=== PATIENT | female | born 1960 | race Caucasian/White ===

== ENCOUNTER 2021-10-18 15:53 | Emergency (ER) | payer OTHER, SELFPAY ==
[2021-10-18 16:35] VITALS: BP 133/84; PULSE 70; RESP 16; TEMP 36.9; O2SAT 99; BMI 33.9
[2021-10-18 17:15] LABS: INR 1.1 (0.9-1.3); Prothrombin Time 12.6 SECONDS (10.1-12.7)
[2021-10-18 17:17] LABS: PTT Partial Thromboplastin Tim 38 SECONDS (26.4-36.2)
[2021-10-18 17:20] LABS: Add Manual Diff / Slide Review NO; Basophils Absolute Auto 100 /uL (0-100); Basophils Percent Auto 1.7 % (0-2); Eosinophils Absolute Auto 200 /uL (0-450); Eosinophils Percent Auto 2.4 % (2-4); Hematocrit 33.4 % (36-46); Lymphocytes Absolute Auto 2900 /uL (1100-4500); Lymphocytes Percent Auto 34.6 % (25-40); Mean Corpuscular HGB Conc 33.1 % (30-36); Mean Corpuscular Hemoglobin 26.9 PG (26-34); Mean Corpuscular Volume 81.4 fL (80-100); Monocytes Absolute Auto 800 /uL (0-900); Monocytes Percent Auto 9.8 % (3-14); Neutrophils Absolute Auto 4400 /uL (1500-7000); Neutrophils Percent Auto 51.5 % (50-75); Platelet Count 463 X10^3/uL (150-400); Red Cell Distribution Width 19.5 % (11.6-14.8); White Blood Cell Count 8.5 X10^3/uL (4.5-11.0)
[2021-10-18 17:22] LABS: Appearance Urine UA CLEAR; Bilirubin Urine UA NEGATIVE (NEGATIVE); Color Urine UA YELLOW; Glucose Urine UA NEGATIVE (Negative); Ketones Urine UA NEGATIVE (NEGATIVE); Leukocyte Esterase Urine UA NEGATIVE (NEGATIVE); Nitrite Urine UA NEGATIVE (Negative); Occult Blood Urine UA 2+ (Negative); Protein Urine UA NEGATIVE (Negative); Urobilinogen Urine UA 0.2 E.U./dL (0.2)
[2021-10-18 17:23] LABS: Alanine Aminotransferase 21 IU/L (<35); Albumin 4.4 g/dL (3.5-5.0); Albumin Globulin Ratio 1.3 (1.0-2.8); Alkaline Phosphatase 91 U/L (38-126); Aspartate Aminotransferase 30 IU/L (14-36); BUN Creatinine Ratio 30.8 (6-22); Bilirubin Total 0.2 mg/dL (0.2-1.3); Blood Urea Nitrogen 24 mg/dL (7-17); Calcium 9.1 mg/dL (8.4-10.2); Carbon Dioxide 27 mmol/L (22-32); Chloride 106 mmol/L (98-107); Estimated Glomerular Filt Rate > 60 mL/min (>60); Globulin 3.5 g/dL (1.7-4.1); Glucose 87 mg/dL (70-100); HEMOLYSIS 17 (0-50); Potassium 4.2 mmol/L (3.4-5.1); Sodium 138 mmol/L (137-145); Total Protein 7.9 g/dL (6.3-8.2)
[2021-10-18 17:25] LABS: pH Urine UA 5.5 (4.5-8.0)
[2021-10-18 17:27] LABS: Bacteria Urine None Seen; Culture Indicated Urine Cult Not Indicated; RBC Urine None Seen (0-5/HPF); WBC Urine None Seen (0-5/HPF)
--- NOTE | 2021-10-18 17:33 | DI.US.S_ITS ---
PROCEDURE: US ABDOMEN LIMITED INDICATIONS: RUQ PAIN TECHNIQUE: Real-time focused scanning was performed of the abdomen, with image documentation. COMPARISON: [facility], CT, CT ABDOMEN PELVIS W CON, 10/18/2021, 17:39. FINDINGS: The liver is normal in size and demonstrates no focal lesions. No findings of gallstones or sludge are seen. The gallbladder wall is not thickened, measuring 3 mm or less. No specific pericholecystic fluid is seen. The sonographic Chavarria sign is negative. There is no biliary dilatation, the common bile duct measures 6 mm. No significant pancreatic abnormality is seen on these images. IMPRESSION: The gallbladder demonstrates a normal sonographic appearance. No biliary dilatation is seen. Dictated by: Hilario Lagos M.D. on 10/18/2021 at 17:30 Approved by: Hilario Lagos M.D. on 10/18/2021 at 17:30
--- NOTE | 2021-10-18 17:33 | DI.CT.S_ITS ---
PROCEDURE: CT ABDOMEN PELVIS W CON INDICATIONS: Abd pain, nausea TECHNIQUE: After the administration of oral and IV contrast, axial sections were acquired from the lung bases to the pubic symphysis. Coronal and sagittal reformats were performed. For radiation dose reduction, the following was used: automated exposure control, adjustment of mA and/or kV according to patient size. COMPARISON: [facility], , ABDOMEN LIMITED, 10/18/2021, 17:51. FINDINGS: Image quality: Excellent. Lung bases: Unremarkable. Heart: No significant findings. ABDOMEN: Liver: Unremarkable. Gallbladder: Unremarkable. Biliary ducts: Unremarkable. Pancreas: Unremarkable. Spleen: Unremarkable. Adrenal Glands: Unremarkable. Kidneys and Ureters: No hydronephrosis. Left renal scarring. Stomach and Bowel: Christa-en-Y gastric bypass. No small bowel obstruction. Clumped appearance of the small bowel in the left abdomen. Prominent stool in the right colon. Normal appendix. Peritoneum: No abnormal intraperitoneal fluid. No free air. Ventral Wall: No hernia. Abdominal Nodes: No retroperitoneal or mesenteric adenopathy by size criteria. Vessels: Aorta and inferior vena cava are normal in size. PELVIS: Pelvic Organs: Anteverted uterus. Bladder: No stone. Pelvic Nodes: No enlarged lymph nodes. Miscellaneous: No inguinal hernias are seen. Bones: No suspicious lesion. IMPRESSION: 1. Clumped appearance of the small bowel in the left abdomen. This raises the possibility of an enteritis. No free fluid. 2. Christa-en-Y gastric bypass. No small bowel obstruction. 3. Prominent stool in the right colon. Dictated by: Gamal Veliz M.D. on 10/18/2021 at 18:30 Approved by: Gamal Veliz M.D. on 10/18/2021 at 18:36
--- NOTE | 2021-10-18 18:38 | ED_ITS ---
HPI - GI Bleed <Agustin Boland PA-C - Last Filed: 10/18/21 19:26> General Chief complaint: GI Bleed Stated complaint: ABD pain, dark stool Time Seen by Provider: 10/18/21 16:30 History of Present Illness HPI Narrative: 61-year-old female with past medical history anemia presents to the ED with 1 day of epigastric pain, black tarry stools, nausea. Patient states that she was diagnosed with anemia and hemoglobin of 10 in mid August, started on iron supplements. Patient was seen by her PCP last week, when he recommended that she stop taking Voltaren and ibuprofen for her back and neck pain, due to concern for a possible GI bleed. PCP also recommended patient see a GI specialist. Patient endorses shortness of breath over the last few months and fatigue and weakness. Patient states these symptoms remained unchanged. However, this morning patient got extremely nauseous, felt a tearing pain in her abdomen when she tried to take a sip of her protein shake. Patient also endorses 1 black, tarry, sticky bowel movement, followed by another bowel movement that looked more normal. Patient had a colonoscopy 3 years ago which was normal. Patient has not had a endoscopy. Patient denies fever, chills, chest pain, shortness of breath at rest, vomiting, dysuria, flank pain, lightheadedness, dizziness, syncope. Related Data Allergies Allergy/AdvReac Type Severity Reaction Status Date / Time No Known Drug Allergies Allergy Verified 10/18/21 18:40 Review of Systems <Agustin Boland PA-C - Last Filed: 10/18/21 19:26> Review of Systems ROS Unobtainable: All systems reviewed & are unremarkable except as noted in HPI and below Constitutional Constitutional: Denies chills, Denies fatigue, Denies fever(s), Denies frequent falls, Denies lethargy and Reports weakness Eyes Eyes: Denies change in vision, Denies eye discharge, Denies irritation and Denies loss of vision ENT Ears, Nose, Mouth, and Throat: Denies change in voice, Denies dizziness, Denies neck pain, Denies sore throat and Denies throat swelling Cardiovascular Cardiovascular: Denies chest pain, Denies irregular heart rhythm, Denies lightheadedness, Denies palpitations, Reports dyspnea, Denies dyspnea on exertion and Denies orthopnea Respiratory Respiratory: Denies cough, Reports dyspnea, Denies dyspnea on exertion and Denies wheezing Gastrointestinal Gastrointestinal: Reports abdominal pain, Reports melena, Denies change in bowel habits, Denies diarrhea, Reports nausea and Denies vomiting Genitourinary Genitourinary: Denies hematuria, Denies flank pain, Denies urinary incontinence and Denies urinary urgency Musculoskeletal Musculoskeletal: Denies back pain, Denies muscle weakness, Denies neck pain, Denies numbness and Denies tingling Integumentary/Breasts Skin/Breast: Denies pruritus, Denies erythema, Denies rash and Denies wounds Neurologic Neurologic: Denies behavioral changes, Denies confusion, Denies dizziness, D enies frequent falls, Denies loss of vision, Denies numbness, Denies tingling and Reports weakness Psychiatric Psychiatric: Denies anxiety, Denies behavioral changes, Denies confusion, Denies depression, Denies homicidal ideation and Denies suicidal ideation Endocrine Endocrine: Denies fatigue, Denies flushing and Denies palpitations Hematologic/Lymphatic Hematologic/Lymphatic: Denies easy bruising Allergic/Immunologic Allergic/Immunologic: Denies urticaria, Denies throat swelling and Denies wheezing Exam <Agustin Boland PA-C - Last Filed: 10/18/21 19:26> Initial Vital Signs Initial Vital Signs: Vital Signs Temperature 98.4 F 10/18/21 16:35 Pulse Rate 70 10/18/21 16:35 Respiratory Rate 16 10/18/21 16:35 Blood Pressure 133/84 10/18/21 16:35 Pulse Oximetry 99 10/18/21 16:35 Const General: cooperative, healthy appearing and comfortable [facility] Head: normal to inspection Eyes General: Yes appearance normal, both eyes and all related structures Resp Effort & Inspection: normal respiratory effort Auscultation: clear to auscultation bilaterally Cardio Rate: regular rate Rhythm: regular rhythm GI Inspection: normal to inspection Rectal Exam: visual inspection normal, normal sphincter tone and heme positive stool Other: Abdomen is soft, nondistended. Abdomen is tender to palpation in the right upper quadrant General: No CVA tenderness Skin General: no rashes or lesions noted Neuro General: patient alert, patient awake and patient oriented x3 Psych Appearance: grossly normal Mental Status: mental status grossly normal <Salvatore Shook DO - Last Filed: 10/22/21 00:19> Initial Vital Signs Initial Vital Signs: Vital Signs Temperature 98.4 F 10/18/21 16:35 Pulse Rate 70 10/18/21 16:35 Respiratory Rate 16 10/18/21 16:35 Blood Pressure 133/84 10/18/21 16:35 Pulse Oximetry 99 10/18/21 16:35 Course <Agustin Boland PA-C - Last Filed: 10/18/21 19:26> Orders Ordered: Discontinued Medications Al Hydrox/Mg Hydrox/Simethicone 20 ml/ Lidocaine HCl 15 ml 0 ml PO NOW ONE Stop: 10/18/21 17:33 Last Admin: 10/18/21 18:42 Dose: 15 ml Documented by: RICHARD Famotidine (Famotidine 20 Mg/2 Ml Vial) 40 mg IV NOW [facility] Last Admin: 10/18/21 18:41 Dose: 40 mg Documented by: RICHARD Morphine Sulfate (Morphine 2 Mg/Ml Inj) 4 mg IV NOW ONE Stop: 10/18/21 17:33 Last Admin: 10/18/21 18:41 Dose: 4 mg Documented by: RICHARD Vital Signs Vital signs: Vital Signs - 8 hr 10/18/21 16:35 10/18/21 18:55 10/18/21 18:56 Temperature 98.4 F Pulse Rate 70 65 65 Respiratory Rate 16 Blood Pressure 133/84 133/65 Pulse Oximetry 99 99 99 10/18/21 19:00 Temperature Pulse Rate 66 Respiratory Rate Blood Pressure 123/64 Pulse Oximetry 99 <Salvatore Shook DO - Last Filed: 10/22/21 00:19> Orders Ordered: Discontinued Medications Al Hydrox/Mg Hydrox/Simethicone 20 ml/ Lidocaine HCl 15 ml 0 ml PO NOW ONE Stop: 10/18/21 17:33 Last Admin: 10/18/21 18:42 Dose: 15 ml Documented by: RICHARD Famotidine (Famotidine 20 Mg/2 Ml Vial) 40 mg IV NOW [facility] Last Admin: 10/18/21 18:41 Dose: 40 mg Documented by: RICHARD Morphine Sulfate (Morphine 2 Mg/Ml Inj) 4 mg IV NOW ONE Stop: 10/18/21 17:33 Last Admin: 10/18/21 18:41 Dose: 4 mg Documented by: RICHARD Vital Signs Vital signs: Vital Signs - 8 hr 10/18/21 16:35 10/18/21 18:55 10/18/21 18:56 Temperature 98.4 F Pulse Rate 70 65 65 Respiratory Rate 16 Blood Pressure 133/84 133/65 Pulse Oximetry 99 99 99 10/18/21 19:00 Temperature Pulse Rate 66 Respiratory Rate Blood Pressure 123/64 Pulse Oximetry 99 MDM - GI Bleed <Agustin Boland PA-C - Last Filed: 10/18/21 19:26> Medical Records Attestation: I reviewed the patient's medical records. Lab Data Attestation: I reviewed the patient's lab results. Lab results narrative: Labs within normal limits Result diagrams: 10/18/21 16:50 10/18/21 16:50 Labs: Lab Results 10/18/21 10/18/21 10/18/21 Range/Units 16:50 16:50 16:50 WBC 8.5 (4.5-11.0) X10^3/uL RBC 4.10 (4.0-5.2) X10^6/uL Hgb 11.0 L (12.0-16.0) g/dL Hct 33.4 L (36-46) % MCV 81.4 (80-100) fL MCH 26.9 (26-34) PG MCHC 33.1 (30-36) % RDW 19.5 H (11.6-14.8) % Plt Count 463 H (150-400) X10^3/uL Neut % (Auto) 51.5 (50-75) % Lymph % (Auto) 34.6 (25-40) % [place] % (Auto) 9.8 (3-14) % Eos % (Auto) 2.4 (2-4) % Baso % (Auto) 1.7 (0-2) % Neut # (Auto) 4400 (7940-5777) /uL Lymph # (Auto) 2900 (7946-6941) /uL [place] # (Auto) 800 (0-900) /uL Eos # (Auto) 200 (0-450) /uL Baso # (Auto) 100 (0-100) /uL PT 12.6 (10.1-12.7) SECONDS INR 1.1 (0.9-1.3) APTT 38 H (26.4-36.2) SECONDS Sodium 138 (137-145) mmol/L Potassium 4.2 (3.4-5.1) mmol/L Chloride 106 (98-107) mmol/L Carbon Dioxide 27 (22-32) mmol/L BUN 24 H (7-17) mg/dL Creatinine 0.78 (0.52-1.04) mg/dL Estimated GFR > 60 (>60) mL/min BUN/Creatinine Ratio 30.8 H (6-22) Glucose 87 (70-100) mg/dL Calcium 9.1 (8.4-10.2) mg/dL Total Bilirubin 0.2 (0.2-1.3) mg/dL AST 30 (14-36) IU/L ALT 21 (<35) IU/L Alkaline Phosphatase 91 (38-126) U/L Total Protein 7.9 (6.3-8.2) g/dL Albumin 4.4 (3.5-5.0) g/dL Globulin 3.5 (1.7-4.1) g/dL Albumin/Globulin Ratio 1.3 (1.0-2.8) Urine Color Urine Appearance Urine pH (4.5-8.0) Ur Specific [place] (1.000-1.035) Urine Protein (Negative) Urine Glucose (UA) (Negative) g/dL Urine Ketones (NEGATIVE) Urine Occult Blood (Negative) Urine Nitrate (Negative) Urine Bilirubin (NEGATIVE) Urine Urobilinogen (0.2) E.U./dL Ur Leukocyte Esterase (NEGATIVE) Urine RBC (0-5/HPF) Urine WBC (0-5/HPF) Urine Bacteria (None) Ur Culture Indicated? Blood Type Antibody Screen 10/18/21 10/18/21 Range/Units 16:50 16:50 WBC (4.5-11.0) X10^3/uL RBC (4.0-5.2) X10^6/uL Hgb (12.0-16.0) g/dL Hct (36-46) % MCV (80-100) fL MCH (26-34) PG MCHC (30-36) % RDW (11.6-14.8) % Plt Count (150-400) X10^3/uL Neut % (Auto) (50-75) % Lymph % (Auto) (25-40) % [place] % (Auto) (3-14) % Eos % (Auto) (2-4) % Baso % (Auto) (0-2) % Neut # (Auto) (2324-6836) /uL Lymph # (Auto) (5802-4125) /uL [place] # (Auto) (0-900) /uL Eos # (Auto) (0-450) /uL Baso # (Auto) (0-100) /uL PT (10.1-12.7) SECONDS INR (0.9-1.3) APTT (26.4-36.2) SECONDS Sodium (137-145) mmol/L Potassium (3.4-5.1) mmol/L Chloride (98-107) mmol/L Carbon Dioxide (22-32) mmol/L BUN (7-17) mg/dL Creatinine (0.52-1.04) mg/dL Estimated GFR (>60) mL/min BUN/Creatinine Ratio (6-22) Glucose (70-100) mg/dL Calcium (8.4-10.2) mg/dL Total Bilirubin (0.2-1.3) mg/dL AST (14-36) IU/L ALT (<35) IU/L Alkaline Phosphatase (38-126) U/L Total Protein (6.3-8.2) g/dL Albumin (3.5-5.0) g/dL Globulin (1.7-4.1) g/dL Albumin/Globulin Ratio (1.0-2.8) Urine Color Yellow Urine Appearance Clear Urine pH 5.5 (4.5-8.0) Ur Specific [place] 1.010 (1.000-1.035) Urine Protein Negative (Negative) Urine Glucose (UA) Negative (Negative) g/dL Urine Ketones Negative (NEGATIVE) Urine Occult Blood 2+ H (Negative) Urine Nitrate Negative (Negative) Urine Bilirubin Negative (NEGATIVE) Urine Urobilinogen 0.2 (0.2) E.U./dL Ur Leukocyte Esterase Negative (NEGATIVE) Urine RBC None seen (0-5/HPF) Urine WBC None seen (0-5/HPF) Urine Bacteria None seen (None) Ur Culture Indicated? Cult not indicated Blood Type O Positive Antibody Screen Negative Point of Care Testing Stool Occult Blood Positive Imaging Data CT scan - abdomen/pelvis: Radiologist's Impression: PROCEDURE:? CT ABDOMEN PELVIS W CON ? INDICATIONS:? Abd pain, nausea ? TECHNIQUE:? After the administration of oral and IV contrast, axial sections were acquired from the lung bases to the pubic symphysis.? Coronal and sagittal reformats were performed.? For radiation dose reduction, the following was used:? automated exposure control, adjustment of mA and/or kV according to patient size. ? COMPARISON:? [facility], ABDOMEN LIMITED, 10/18/2021, 17:51. ? FINDINGS:? Image quality:? Excellent.? ? Lung bases:? Unremarkable.? ? Heart:? No significant findings. ? ? ABDOMEN: Liver:? Unremarkable.? ? Gallbladder:? Unremarkable.? ? Biliary ducts:? Unremarkable.? ? Pancreas:? Unremarkable.? ? Spleen:? Unremarkable.? ? Adrenal Glands:? Unremarkable.? ? Kidneys and Ureters:? No hydronephrosis.? Left renal scarring.? ? ? Stomach and Bowel:? Christa-en-Y gastric bypass.? No small bowel obstruction.? Clumped appearance of the small bowel in the left abdomen.? Prominent stool in the right colon.? Normal appendix.? Peritoneum:? No abnormal intraperitoneal fluid.? No free air.? ? Ventral Wall: ? No hernia.? Abdominal Nodes:? No retroperitoneal or mesenteric adenopathy by size criteria.? Vessels:? Aorta and inferior vena cava are normal in size.? ? PELVIS: Pelvic Organs:? Anteverted uterus.? ? Bladder:? No stone.? ? Pelvic Nodes: No enlarged lymph nodes.? Miscellaneous: No inguinal hernias are seen. ? ? ? Bones:? No suspicious lesion. ? ? IMPRESSION:? 1. Clumped appearance of the small bowel in the left abdomen.? This raises the possibility of an enteritis.? No free fluid. ? 2. Christa-en-Y gastric bypass.? No small bowel obstruction. ? 3. Prominent stool in the right colon. ? ? Dictated by: Gamal Veliz M.D. on 10/18/2021 at 18:30 ? ? Approved by: Gamal Veliz M.D. on 10/18/2021 at 18:36 ? US - abdomen: Radiologist's Impression: PROCEDURE: US ABDOMEN LIMITED ? INDICATIONS:? RUQ PAIN ? TECHNIQUE:? Real-time focused scanning was performed of the abdomen, with image documentat ion.? ? COMPARISON:? [facility], CT, CT ABDOMEN PELVIS W CON, 10/18/2021, 17:39. ? FINDINGS:? The liver is normal in size and demonstrates no focal lesions. ? No findings of gallstones or sludge are seen.? The gallbladder wall is not thickened, measuring 3 mm or less.? No specific pericholecystic fluid is seen.? The sonographic Chavarria sign is negative. ? There is no biliary dilatation, the common bile duct measures 6 mm.? ? No significant pancreatic abnormality is seen on these images.? IMPRESSION:? The gallbladder demonstrates a normal sonographic appearance. No biliary dilatation is seen. ? ? Dictated by: Hilario Lagos M.D. on 10/18/2021 at 17:30 ? ? Approved by: Hilario Lagos M.D. on 10/18/2021 at 17:30 ? MDM Narrative Medical decision making narrative: 61-year-old female with past medical history anemia presents to the ED with 1 day of epigastric pain, black tarry stools, nausea. Concern for upper GI bleed versus anemia versus cholecystitis versus bowel obstruction versus GERD versus gastritis versus peptic ulcer disease. Will order labs, type and screen, coags, ultrasound abdomen, CT abdomen pelvis. Will treat symptoms with GI cocktail, Pepcid AC, morphine. Will re-evaluate. Ultrasound shows a normal gallbladder, no biliary dilatation. CT abdomen pelvis shows possible enteritis, no bowel obstruction, prominent stool in the right colon. Patient's symptoms improved with Pepcid AC, GI cocktail, morphine. Patient's hemoglobin is stable at 11. Patient was guaiac positive. Patient's symptoms could be due to the enteritis, constipation or possible gastritis/PUD. Patient agrees to follow-up with a GI specialist for further workup. Recommend a trial of Pepcid AC twice a day for 2 weeks. ED return precautions discussed. Patient verbalized understanding. <Salvatore Shook, - Last Filed: 10/22/21 00:19> Lab Data Labs: Lab Results 10/18/21 10/18/21 10/18/21 Range/Units 16:50 16:50 16:50 WBC 8.5 (4.5-11.0) X10^3/uL RBC 4.10 (4.0-5.2) X10^6/uL Hgb 11.0 L (12.0-16.0) g/dL Hct 33.4 L (36-46) % MCV 81.4 (80-100) fL MCH 26.9 (26-34) PG MCHC 33.1 (30-36) % RDW 19.5 H (11.6-14.8) % Plt Count 463 H (150-400) X10^3/uL Neut % (Auto) 51.5 (50-75) % Lymph % (Auto) 34.6 (25-40) % [place] % (Auto) 9.8 (3-14) % Eos % (Auto) 2.4 (2-4) % Baso % (Auto) 1.7 (0-2) % Neut # (Auto) 4400 (8657-8830) /uL Lymph # (Auto) 2900 (1145-2318) /uL [place] # (Auto) 800 (0-900) /uL Eos # (Auto) 200 (0-450) /uL Baso # (Auto) 100 (0-100) /uL PT 12.6 (10.1-12.7) SECONDS INR 1.1 (0.9-1.3) APTT 38 H (26.4-36.2) SECONDS Sodium 138 (137-145) mmol/L Potassium 4.2 (3.4-5.1) mmol/L Chloride 106 (98-107) mmol/L Carbon Dioxide 27 (22-32) mmol/L BUN 24 H (7-17) mg/dL Creatinine 0.78 (0.52-1.04) mg/dL Estimated GFR > 60 (>60) mL/min BUN/Creatinine Ratio 30.8 H (6-22) Glucose 87 (70-100) mg/dL Calcium 9.1 (8.4-10.2) mg/dL Total Bilirubin 0.2 (0.2-1.3) mg/dL AST 30 (14-36) IU/L ALT 21 (<35) IU/L Alkaline Phosphatase 91 (38-126) U/L Total Protein 7.9 (6.3-8.2) g/dL Albumin 4.4 (3.5-5.0) g/dL Globulin 3.5 (1.7-4.1) g/dL Albumin/Globulin Ratio 1.3 (1.0-2.8) Urine Color Urine Appearance Urine pH (4.5-8.0) Ur Specific [place] (1.000-1.035) Urine Protein (Negative) Urine Glucose (UA) (Negative) g/dL Urine Ketones (NEGATIVE) Urine Occult Blood (Negative) Urine Nitrate (Negative) Urine Bilirubin (NEGATIVE) Urine Urobilinogen (0.2) E.U./dL Ur Leukocyte Esterase (NEGATIVE) Urine RBC (0-5/HPF) Urine WBC (0-5/HPF) Urine Bacteria (None) Ur Culture Indicated? Blood Type Antibody Screen 10/18/21 10/18/21 Range/Units 16:50 16:50 WBC (4.5-11.0) X10^3/uL RBC (4.0-5.2) X10^6/uL Hgb (12.0-16.0) g/dL Hct (36-46) % MCV (80-100) fL MCH (26-34) PG MCHC (30-36) % RDW (11.6-14.8) % Plt Count (150-400) X10^3/uL Neut % (Auto) (50-75) % Lymph % (Auto) (25-40) % [place] % (Auto) (3-14) % Eos % (Auto) (2-4) % Baso % (Auto) (0-2) % Neut # (Auto) (9152-5143) /uL Lymph # (Auto) (6914-9592) /uL [place] # (Auto) (0-900) /uL Eos # (Auto) (0-450) /uL Baso # (Auto) (0-100) /uL PT (10.1-12.7) SECONDS INR (0.9-1.3) APTT (26.4-36.2) SECONDS Sodium (137-145) mmol/L Potassium (3.4-5.1) mmol/L Chloride (98-107) mmol/L Carbon Dioxide (22-32) mmol/L BUN (7-17) mg/dL Creatinine (0.52-1.04) mg/dL Estimated GFR (>60) mL/min BUN/Creatinine Ratio (6-22) Glucose (70-100) mg/dL Calcium (8.4-10.2) mg/dL Total Bilirubin (0.2-1.3) mg/dL AST (14-36) IU/L ALT (<35) IU/L Alkaline Phosphatase (38-126) U/L Total Protein (6.3-8.2) g/dL Albumin (3.5-5.0) g/dL Globulin (1.7-4.1) g/dL Albumin/Globulin Ratio (1.0-2.8) Urine Color Yellow Urine Appearance Clear Urine pH 5.5 (4.5-8.0) Ur Specific [place] 1.010 (1.000-1.035) Urine Protein Negative (Negative) Urine Glucose (UA) Negative (Negative) g/dL Urine Ketones Negative (NEGATIVE) Urine Occult Blood 2+ H (Negative) Urine Nitrate Negative (Negative) Urine Bilirubin Negative (NEGATIVE) Urine Urobilinogen 0.2 (0.2) E.U./dL Ur Leukocyte Esterase Negative (NEGATIVE) Urine RBC None seen (0-5/HPF) Urine WBC None seen (0-5/HPF) Urine Bacteria None seen (None) Ur Culture Indicated? Cult not indicated Blood Type O Positive Antibody Screen Negative Point of Care Testing Stool Occult Blood Positive Discharge Plan Departure Patient Disposition: Home Clinical Impression: Abdominal pain Instructions: DI for Abdominal Pain-Adult Activity Restrictions/Additional Instructions: You were evaluated in the ED today for abdominal pain, nausea. Your labs were normal, your hemoglobin was 11. Your ultrasound showed a normal gallbladder. Your CT shows possible enteritis, constipation. You may take MiraLax for the constipation. It is possible that your symptoms are due to the ED enteritis or could be due to gastritis or peptic ulcer. You may continue to take Pepcid AC twice daily for 2 weeks. Please follow-up with a GI specialist as soon as possible. Return to the ED if symptoms worsen, you experience chest pain, shortness of breath, abdominal pain, are unable to keep down liquids or solids. <Salvatore Shook DO - Last Filed: 10/22/21 00:19> [facility] Attestation: I was immediately available in the department for consultation. This documentation has been reviewed and I agree with assessment and plan. Supervised by Salvatore Shook DO
[2021-10-18] MEDS: MORPHINE 2 MG/ML INJ 4 MG IV (18:41)
[2021-10-18] MEDS: FAMOTIDINE 20 MG/2 ML VIAL 40 MG IV (18:41)
[2021-10-18] MEDS: MAG HYDROX/ALUMINUM/SIMETH SUS 20 ML, LIDOCAINE VISCOUS 2% 15 ML PO (18:42)
[2021-10-18 18:55] VITALS: PULSE 65; O2SAT 99
[2021-10-18 18:56] VITALS: BP 133/65; PULSE 65; O2SAT 99
[2021-10-18 19:00] VITALS: BP 123/64; PULSE 66; O2SAT 99
== END 2021-10-18 19:21 | disposition home or self-care (01) ==
PROVIDERS: Emergency Provider Student in an Organized Health Care Education/Training Program
DX: R10.13 Epigastric pain (principal)
CPT/HCPCS: 36415; 74177; 76705; 80053; 81001; 82272; 85025; 85610; 85730; 86850; 86900; 86901; 93005; 96374; 96375; 99284; J2270; Q9967